=== PATIENT | male | born 1960 | race Caucasian/White ===

== ENCOUNTER 2023-01-11 09:34 | Emergency (ER) | payer SELFPAY ==
--- NOTE | 2023-01-11 09:38 | XRR_ITS ---
PROCEDURE INFORMATION: Exam: XR Chest Exam date and time: 01/11/2023 10:10 AM Age: 62 years old Clinical indication: Cough; Additional info: Dyspnea/cough TECHNIQUE: Imaging protocol: Radiologic exam of the chest. Views: 1 view. COMPARISON: No relevant prior studies available. FINDINGS: Lungs: Unremarkable. No consolidation. Pleural spaces: Unremarkable. No pleural effusion. No pneumothorax. Heart/Mediastinum: Unremarkable. No cardiomegaly. Bones/joints: Unremarkable. XR/XR chest 1V portable [id number] IMPRESSION: No acute findings.
--- NOTE | 2023-01-11 09:39 | ED_ITS ---
HPI - SOB/Dyspnea General: Chief Complaint: Shortness of Breath/Dyspnea Stated Complaint: Congestion, Cough Time Seen by Provider: 01/11/23 09:36 Source: patient Mode of arrival: ambulatory History of Present Illness: HPI Narrative: 62-year-old male presents emergency room with 2 to 3-day history of nonpr oductive cough mild sinus drainage. Has not had any vomiting or diarrhea. Cough is worse when he lays flat. No chest pain. No vomiting no diarrhea MD elicited complaint: shortness of breath and cough Exacerbating factors: lying flat Relieving factors: upright position Associated symptoms: Reports chest congestion and cough; Deny abdominal pain, chest pain, diaphoresis, dizziness, extremity pain, fever(s), hemoptysis, lightheadedness, myalgias, nausea, orthopnea, palpitatio ns, paresthesias, polydipsia, polyuria, rash, sense of impending doom, syncope or vomiting Review of Systems Const: Denies: fever(s), chills, fatigue, malaise or diaphoresis ENMT: Denies: throat pain, ear or mastoid pain, nasal discharge or nasal congestion Card: Denies: chest pain, palpitations, lightheadedness, syncope or orthopnea Resp: Reports: non-productive cough and chest congestion; Denies: dyspnea, productive cough, wheezing or hemoptysis GI: Denies: abdominal pain, nausea or vomiting : Denies: flank pain, dysuria, urinary frequency or urinary urgency Musc: Denies: neck pain, back pain or extremity pain Skin/Breast: Denies: rash or pruritus Neuro: Denies: dizziness Endo: Denies: polyuria or polydipsia Physical Exam Const: GENERAL APPEARANCE: cooperative and comfortable ORIENTATION/CONSCIOUSNESS: Yes awake, Yes oriented to person, Yes oriented to place and Yes oriented to time HENMT: COMMON NORMALS: normocephalic, atraumatic and hearing grossly normal bilaterally HEAD & SCALP: normocephalic and atraumatic Resp: COMMON NORMALS: normal respiratory effort, No retractions, No use of accessory muscles and clear to auscultation bilaterally AUSCULTATION: clear to auscultation bilaterally Cardio: COMMON NORMALS: regular rate, regular rhythm and No murmurs present (Cardio) RATE: regular rate RHYTHM: regular rhythm GI: COMMON NORMALS: Soft to palpation and No hepatosplenomegaly present AUSCULTATION: Yes normoactive bowel sounds PALPATION: Yes Soft to palpation, No Tenderness to palpation present (GI), No Guarding due to palpation present (GI) and Yes No hepatosplenomegaly present Extremity: COMMON NORMALS: normal to inspection, capillary refill normal, no clubbing, cyanosis or edema, no calf tenderness and no pedal edema Neuro: SENSORIUM/ORIENTATION: Yes oriented to person, Yes oriented to place and Yes oriented to time Skin: COMMON NORMALS: no rashes or lesions noted GENERAL SKIN EXAM: no rashes or lesions noted Course Vital Signs: Vital signs: Vital Signs Temperature 98.0 F 01/11/23 09:51 Pulse Rate 82 01/11/23 09:51 Respiratory Rate 14 01/11/23 09:51 Blood Pressure 201/84 01/11/23 09:51 Pulse Oximetry 97 01/11/23 09:51 Oxygen Delivery Me thod 01/11/23 09:51 MDM - SOB/Dyspnea Medical Decision Making Labs and imaging reviewed. EKG negative exam is negative. Chest x-ray does not show pneumothorax pneumonia widening of the mediastinum or effusion. Discharge home supportive cares for viral respiratory infection follow-up as needed Medical Records I reviewed the patient's medical records. Lab Data I reviewed the patient's lab results. 01/11/23 10:20 01/11/23 10:20 Labs/Radiology: Laboratory Results WBC 7.8 10^3/uL (4.0-10.0) 01/11/23 10:20 RBC 5.48 10^6/uL (4.1-5.3) H 01/11/23 10:20 Hgb 15.0 g/dL (11.7-16.6) 01/11/23 10:20 Hct 49.7 % (42.0-52.0) 01/11/23 10:20 MCV 90.7 fl (80-94) 01/11/23 10:20 MCH 27.4 pg (28.0-34.0) L 01/11/23 10:20 MCHC 30.2 g/dL (30.0-36.0) 01/11/23 10:20 RDW 12.8 % (12.1-15.1) 01/11/23 10:20 Plt Count 142 10^3/cmm (130-400) 01/11/23 10:20 MPV 11.1 fL (7.4-10.4) H 01/11/23 10:20 Neut % (Auto) 66.7 % 01/11/23 10:20 Lymph % (Auto) 18.3 % 01/11/23 10:20 [place] % (Auto) 10.4 % 01/11/23 10:20 Eos % (Auto) 4.0 % 01/11/23 10:20 Baso % (Auto) 0.5 % 01/11/23 10:20 Neut # (Auto) 5.19 10^3/uL (1.8-7.7) 01/11/23 10:20 Lymph # (Auto) 1.4 10^3/uL (0.8-4.8) 01/11/23 10:20 [place] # (Auto) 0.8 10^3/uL (0.2-0.9) 01/11/23 10:20 Eos # (Auto) 0.3 10^3/uL (0.0-0.8) 01/11/23 10:20 Baso # (Auto) 0.0 10^3/uL (0.0-0.1) 01/11/23 10:20 Nucleated RBC % (auto) 0 % 01/11/23 10:20 Nucleated RBCs # 0.0 /100WBC 01/11/23 10:20 Sodium 136 mmol/L (136-145) 01/11/23 10:20 Potassium 4.1 mmol/L (3.5-5.1) 01/11/23 10:20 Chloride 103 mmol/L (98-107) 01/11/23 10:20 Carbon Dioxide 23 mmol/L (22-29) 01/11/23 10:20 Anion Gap 14.1 (5-19) 01/11/23 10:20 BUN 7 mg/dL (8-23) L 01/11/23 10:20 Creatinine 0.9 mg/dL (0.7-1.2) 01/11/23 10:20 GFR Calculation 85.0 mL/min (90-130) L 01/11/23 10:20 Glucose 92 mg/dL (65-115) 01/11/23 10:20 Calculated Osmolality 280 mOsm/kg (285-295) L 01/11/23 10:20 Calcium 8.3 mg/dL (8.5-10.5) L 01/11/23 10:20 Discharge Plan Discharge Patient Disposition: Home Clinical Impression: Viral URI with cough Condition: Stable Prescriptions: New albuterol sulfate 90 mcg/actuation HFA aerosol inhaler 2 inh INHALATION Q4H PRN (Reason: shortness of breath or wheezing) Qty: 18 0RF Discharge Orders: Discharge ED (Routine); Ordered 01/11/23 Ordered By: Enoch Brown Discharge Diet: Usual diet Discharge Activity: Increase activity as tolerated Patient Instructions: Opioid Safety, Pain Management Activity Restrictions/Additional Instructions: You were seen today for cough and congestion. Your chest x-ray was normal and your white count was normal. Recommend supportive cares [id number] cough cold medication can use albuterol as needed. Follow-up with your primary care doctor if not improving. Coding Level of Care Code ED Programmer Operator Numerical Control for Alice Walker
[2023-01-11 09:51] VITALS: BP 201/84; PULSE 82; RESP 14; TEMP 36.7; O2SAT 97; BMI 26.9
[2023-01-11 10:47] LABS: Basophils % 0.5 %; Eosinophils # 0.3 10^3/uL (0.0-0.8); Hematocrit 49.7 % (42.0-52.0); Lymphocytes # 1.4 10^3/uL (0.8-4.8); Lymphocytes % 18.3 %; Mean Corpuscular HGB Conc 30.2 g/dL (30.0-36.0); Mean Corpuscular Hemoglobin 27.4 pg (28.0-34.0); Mean Corpuscular Volume 90.7 fl (80-94); Mean Platelet Volume 11.1 fL (7.4-10.4); Monocytes # 0.8 10^3/uL (0.2-0.9); Monocytes % 10.4 %; Neutrophils # 5.19 10^3/uL (1.8-7.7); Neutrophils % 66.7 %; Nucleated Red Blood Cells % 0 %; Platelet Count 142 10^3/cmm (130-400); Red Blood Count 5.48 10^6/uL (4.1-5.3); Red Cell Distribution Width 12.8 % (12.1-15.1); White Blood Count 7.8 10^3/uL (4.0-10.0)
[2023-01-11 10:55] VITALS: BP 183/101; PULSE 83; RESP 16; O2SAT 96
[2023-01-11 10:58] LABS: Blood Urea Nitrogen 7 mg/dL (8-23); Calcium 8.3 mg/dL (8.5-10.5); Carbon Dioxide 23 mmol/L (22-29); Chloride 103 mmol/L (98-107); Glucose 92 mg/dL (65-115); Osmolality Calculated 280 mOsm/kg (285-295); Sodium 136 mmol/L (136-145)
[2023-01-11 11:01] LABS: Anion Gap 14.1 (5-19); Potassium 4.1 mmol/L (3.5-5.1)
--- NOTE | 2023-01-21 15:22 | DCPLANNER ---
marketing development manager called patient due to no primary care physician - patient declines at this time.
== END 2023-01-11 11:00 | disposition home or self-care (01) ==
PROVIDERS: Emergency Provider Family Medicine
DX: J06.9 Acute upper respiratory infection, unspecified (principal)
CPT/HCPCS: 36415; 71045; 80048; 85025; 99283

== ENCOUNTER 2023-03-18 20:02 | Emergency (ER) | payer OTHER, SELFPAY ==
[2023-03-18 20:16] VITALS: PULSE 84; RESP 18; TEMP 36.6; O2SAT 98; BMI 26.9
[2023-03-18 20:19] VITALS: BP 178/97
--- NOTE | 2023-03-18 20:49 | ED_ITS ---
HPI - General Adult General: Chief complaint: Airway/Esophagus Foreign Body Stated complaint: objective in throat Time Seen by Provider: 03/18/23 20:20 History of Present Illness: Presents to the ER with complaints of when he swallowed rice earlier today thinks it got stuck in his throat. Patient did swallow water after that easily with no complaints. Patient also noted his blood pressure was high and his days not been on any blood pressure medicine for a long time but used to be on blood pressure medicine. Review of Systems General: Reports: 10 or more systems reviewed and unremarkable except in HPI and below Physical Exam Const: COMMON NORMALS: no acute distress, average body habitus, patient oriented x3, no limitations, healthy appearing, alert and well nourished HENMT: COMMON NORMALS: normocephalic, atraumatic, hearing grossly normal bilaterally, external ears normal, Normal external nose present and moist oral mucous membranes HEAD & SCALP: normocephalic and atraumatic NOSE: Normal external nose present EXTERNAL EAR: Yes external ears normal Eye: COMMON NORMALS: Equal, round and reactive pupils present, EOMs intact bilaterally, conjunctivae normal and no scleral icterus CONJUNCTIVA: Yes conjunctivae normal PUPIL: Yes Equal, round and reactive pupils present Neck/C-Spine: COMMON NORMALS: full ROM, no lymphadenopathy, supple, no meningeal signs, no JVD and Thyroid normal THYROID: Thyroid normal Lymph: LYMPHATIC: no lymphadenopathy noted Chest: COMMONS NORMALS: normal inspection of the chest and normal palpation of entire chest wall Resp: COMMON NORMALS: normal respiratory effort, No retractions, No use of accessory muscles and clear to auscultation bilaterally AUSCULTATION: clear to auscultation bilaterally Cardio: COMMON NORMALS: no JVD, regular rate, regular rhythm, S1 normal heart sound present, S2 normal heart sound present, No gallops present (Cardio), No clicks present (Cardio) and No rub (Cardio) RATE: regular rate RHYTHM: regular rhythm HEART SOUNDS: S1 normal heart sound present and S2 normal heart sound present GI: COMMON NORMALS: Normal to inspection, nondistended, normoactive bowel sounds present, Soft to palpation, non-tender, No hepatosplenomegaly present and no masses PALPATION: Yes Soft to palpation and Yes No hepatosplenomegaly present : COMMON NORMALS: Yes no CVA tenderness BLADDER/KIDNEY EXAM: Yes no CVA tenderness Back/Pelvis: COMMON NORMALS: no CVA tenderness Neuro: COMMON NORMALS: patient oriented x3 SENSORIUM/ORIENTATION: Yes alert MENINGEAL SIGNS: Yes no meningeal signs Course Vital Signs: Vital signs: Vital Signs Temperature 97.8 F 03/18/23 20:16 Pulse Rate 84 03/18/23 20:16 Respiratory Rate 18 03/18/23 20:16 Blood Pressure 178/97 03/18/23 20:19 Pulse Oximetry 98 03/18/23 20:16 MDM - General Adult Medical Decision Making Patient presents to the ER with possible foreign body and hypertension. Patient said he swallowed water easily with no problem. Patient is not having any symptoms of esophageal foreign body at this moment, patient is hypertensive at this moment. Patient be discharged home on lisinopril 10 mg 1 p.o. daily and he is to follow-up with his family practice doctor in the next 2 weeks. Differential Diagnosis Esophageal foreign body, hypertension Medical Records I reviewed the patient's medical records. Lab Data I reviewed the patient's lab results. Discharge Plan Discharge Patient Disposition: Home Clinical Impression: Hypertension Qualifiers: Hypertension type: primary hypertension Qualified Code(s): I10 - Essential (primary) hypertension Condition: Stable Prescriptions: New lisinopril 10 mg tablet 10 mg PO DAILY Qty: 30 0RF No Action albuterol sulfate 90 mcg/actuation HFA aerosol inhaler 2 inh INHALATION Q4H PRN (Reason: shortness of breath or wheezing) Qty: 18 0RF Discharge Orders: Discharge ED (Routine); Ordered 03/18/23 Ordered By: Isai Simmons Patient Instructions: Hypertension Activity Restrictions/Additional Instructions: Please take your prescribed medicine as directed. Please follow-up with your family practice doctor in the next 2 weeks for recheck of your blood pressure. Coding Level of Care Code ED Logistics Loss Prevention Manager for Alice Walker
[2023-03-18 21:08] VITALS: BP 173/104; PULSE 80; O2SAT 98
[2023-03-18] MEDS: lisinopril 10 mg Tablet PO (21:30)
[2023-03-18 21:35] VITALS: BP 176/98; PULSE 82; RESP 18; O2SAT 99
--- NOTE | 2023-03-21 12:21 | DCPLANNER ---
human resources compliance manager called patient due to no primary care physician - no answer at this time.
== END 2023-03-18 21:38 | disposition home or self-care (01) ==
PROVIDERS: Emergency Provider Emergency Medicine
DX: R09.89 Other specified symptoms and signs involving the circulatory and respiratory systems (principal); I10 Essential (primary) hypertension
CPT/HCPCS: 99283